=== PATIENT | female | born 1990 | race Caucasian/White ===

== ENCOUNTER 2016-04-24 23:19 | Emergency (ER) | payer MEDICAID ==
[~2016-04-24] VITALS: Ht 165.1 cm; Wt 88.1 kg
[~2016-04-24 23:19] MED LIST: ABX FOR UTI; AMLO10TA2 PO; AMLO5TAB2 PO; CALC667C PO; CALC667C3 PO; CEFD300C2 PO; CHOL10002 PO; DIPH28.34 TP; DOXY100T PO; HYDR-3240 PO; HYDR2TAB13 PO; LACT1CAP24 PO; LISI30TA PO; LORA-446 PO; OXYC-302 PO; SULF1TAB24 PO; abx; vitamin D
[2016-04-25 02:25] VITALS: BP 188/105
[2016-04-25] MEDS ORDERED: SODIUM CHLORIDE FLUSH 10ML SYR IVF ONE (02:30)
[2016-04-25 02:52] LABS: HEMOGLOBIN 11.8 g/dL (11.7-16.4)
[2016-04-25] MEDS ORDERED: CEFTAROLINE 600 MG in SODIUM CHLORIDE 0.9% 100 ML IV ONE (03:00)
[2016-04-25 03:07] LABS: BLOOD UREA NITROGEN 53 mg/dL (7-18)
[2016-04-25] MEDS ORDERED: ACETAMINOPHEN 325 MG TABLET ONE (03:57)
[2016-04-25] MEDS ORDERED: ACETAMINOPHEN 325 MG TABLET PO ONE (04:00)
[2016-04-25] MEDS ORDERED: KETOROLAC 30 MG/1 ML ONE (04:03)
[2016-04-25] MEDS ORDERED: KETOROLAC 30 MG/1 ML IVPush ONE (04:30)
== END 2016-04-25 04:31 | disposition home or self-care (01) ==
LOC: ED 04-25 04:25
DX: L03.314 Cellulitis of groin (principal); I12.0 Hypertensive chronic kidney disease with stage 5 chronic kidney disease or end stage renal disease; N18.6 End stage renal disease; M54.30 Sciatica, unspecified side; Z87.440 Personal history of urinary (tract) infections; Z99.2 Dependence on renal dialysis
CPT/HCPCS: 36415; 80048; 82040; 83605; 85025; 87040; 96365; 96375; 99284; J0712; J1885

== ENCOUNTER 2016-05-30 19:56 | Emergency (ER) | payer MEDICAID ==
[~2016-05-30] VITALS: Ht 154.9 cm; Wt 85.6 kg
[2016-05-30 21:13] LABS: HEMOGLOBIN 12.4 g/dL (11.7-16.4)
[2016-05-30 21:26] LABS: BLOOD UREA NITROGEN 37 mg/dL (7-18)
[2016-05-30 21:30] LABS: IS PT STATUS REG ER OR PRE ER? YES
[2016-05-30 22:05] LABS: PATH.CAST-FLAG NOT PRESENT; SPERM-FLAG NOT PRESENT; SRC-FLAG NOT PRESENT; XTAL-FLAG NOT PRESENT; YLC-FLAG NOT PRESENT
[2016-05-30 22:45] VITALS: BP 151/103
[2016-05-30] MEDS ORDERED: HYDROmorphone 2 MG/ML, 1ML ONE (23:10)
[2016-05-30] MEDS ORDERED: HYDROmorphone 1 MG/ML, 1ML IM ONE (23:30)
== END 2016-05-30 23:46 | disposition home or self-care (01) ==
LOC: ED 23:19
DX: R07.89 Other chest pain (principal); N30.00 Acute cystitis without hematuria; I10 Essential (primary) hypertension; M54.30 Sciatica, unspecified side; N19 Unspecified kidney failure; Z99.2 Dependence on renal dialysis
CPT/HCPCS: 36415; 71010; 80048; 81001; 82040; 84484; 85025; 87086; 87147; 93005; 96372; 99285; J1170

== ENCOUNTER 2016-11-05 11:12 | Emergency (ER) | payer MEDICARE, MEDICAID ==
[~2016-11-05] VITALS: Ht 165.1 cm; Wt 88.9 kg
[~2016-11-05 11:12] MED LIST changes: -CEFD300C2 PO; +CEFD300C37 PO; -HYDR2TAB13 PO; +HYDR2TAB29 PO
[2016-11-05] MEDS ORDERED: KETOROLAC 30 MG/1 ML ONE (12:00)
[2016-11-05] MEDS ORDERED: SODIUM CHLORIDE FLUSH 10ML SYR IVF ONE (12:00)
[2016-11-05] MEDS ORDERED: KETOROLAC 30 MG/1 ML IVPush ONE (12:00)
[2016-11-05 12:08] LABS: BLOOD UREA NITROGEN 29 mg/dL (7-18); HEMATOCRIT 38.6 % (34.6-47.8); HEMOGLOBIN 13.1 g/dL (11.7-16.4); WHITE BLOOD COUNT 4.8 x10^3/uL (3.4-10)
[2016-11-05] MEDS ORDERED: OMNIPAQUE 350 MG/ML, 100ML BOTTLE ONE (12:44)
[2016-11-05 13:32] VITALS: BP 159/81
== END 2016-11-05 13:35 | disposition home or self-care (01) ==
LOC: ED 13:29
DX: M94.0 Chondrocostal junction syndrome [Tietze] (principal); I10 Essential (primary) hypertension; Z99.2 Dependence on renal dialysis
CPT/HCPCS: 36415; 71020; 71275; 80048; 82040; 84484; 85025; 85610; 85730; 93005; 96374; 99285; J1885; Q9967

== ENCOUNTER 2016-12-29 13:18 | Emergency (ER) | payer MEDICARE, MEDICAID ==
[~2016-12-29] VITALS: Ht 162.6 cm; Wt 89.3 kg
[2016-12-29] MEDS ORDERED: HYDROmorphone 1 MG/ML, 1ML IM ONE (13:30)
[2016-12-29] MEDS ORDERED: DIAZEPAM 5 MG TABLET PO ONE (13:30)
[2016-12-29] MEDS ORDERED: ONDANSETRON ODT 4 MG PO ONE (13:30)
[2016-12-29] MEDS ORDERED: ONDANSETRON ODT 4 MG ONE (13:39)
[2016-12-29] MEDS ORDERED: DIAZEPAM 5 MG TABLET ONE (13:39)
[2016-12-29] MEDS ORDERED: HYDROmorphone 1 MG/ML, 1ML ONE (13:40)
[2016-12-29 15:06] VITALS: BP 128/84
== END 2016-12-29 15:16 | disposition home or self-care (01) ==
LOC: ED 15:10
DX: R51 Headache (principal); M54.2 Cervicalgia; I12.9 Hypertensive chronic kidney disease with stage 1 through stage 4 chronic kidney disease, or unspecified chronic kidney disease; N18.9 Chronic kidney disease, unspecified; Z99.2 Dependence on renal dialysis
CPT/HCPCS: 96372; 99283; J1170; Q0162

== ENCOUNTER 2017-01-14 17:00 | Emergency (ER) | payer MEDICAID, MEDICARE ==
[~2017-01-14] VITALS: Ht 170.2 cm; Wt 88.1 kg
[2017-01-14] MEDS ORDERED: ONDANSETRON 2MG/ML, 2ML IVPush ONE (17:30)
[2017-01-14] MEDS ORDERED: SODIUM CHLORIDE 0.9% 1,000ML IVBOLUS ONE (17:30)
[2017-01-14] MEDS ORDERED: SODIUM CHLORIDE FLUSH 10ML SYR IVF ONE (17:30)
[2017-01-14 18:00] LABS: HEMATOCRIT 37.5 % (34.6-47.8); HEMOGLOBIN 12.8 g/dL (11.7-16.4); WHITE BLOOD COUNT 7.8 x10^3/uL (3.4-10)
[2017-01-14 18:10] LABS: ASPARTATE AMINO TRANSFERASE 7 U/L (15-37); BLOOD UREA NITROGEN 33 mg/dL (7-18)
[2017-01-14] MEDS ORDERED: HYDROmorphone 1 MG/ML, 1ML IV ONE (18:30)
[2017-01-14] MEDS ORDERED: SULFAMETH./TRIMETHOPRIM DS 800MG/160MG TABLET PO ONE (21:00)
[2017-01-14 21:19] VITALS: BP 155/98
== END 2017-01-14 21:21 | disposition home or self-care (01) ==
LOC: ED 17:33
DX: L03.311 Cellulitis of abdominal wall (principal); I10 Essential (primary) hypertension; I12.0 Hypertensive chronic kidney disease with stage 5 chronic kidney disease or end stage renal disease; N18.6 End stage renal disease; Z99.2 Dependence on renal dialysis
CPT/HCPCS: 36415; 74176; 76700; 80053; 81001; 83690; 84703; 85025; 87086; 87147; 96361; 96374; 96375; 99285; J1170; J2405; J7030

== ENCOUNTER 2017-02-24 20:21 | Emergency (ER) | payer MEDICARE ==
[~2017-02-24] VITALS: Ht 162.6 cm; Wt 89.0 kg
[2017-02-24] MEDS ORDERED: CINA30TA2 PO (20:48)
[2017-02-24] MEDS ORDERED: SEVE800T8 PO (20:48)
[2017-02-24 20:50] LABS: BASOPHILS # (AUTO) 0.04 x10^3/uL (0-0.1); BASOPHILS % (AUTO) 0 % (0-1); EOSINOPHILS # (AUTO) 0.03 x10^3/uL (0-0.4); EOSINOPHILS % (AUTO) 0 % (1-7); LYMPHOCYTES # (AUTO) 2.18 x10^3/uL (1-3.4); LYMPHOCYTES % (AUTO) 22 % (22-44); MD NO; MEAN CORPUSCULAR HEMOGLOBIN 28.5 pg (27.0-34.8); MEAN CORPUSCULAR HGB CONC 33.5 g/dL (32.4-35.8); MEAN CORPUSCULAR VOLUME 85.1 fL (80-100); MONOCYTES # (AUTO) 0.75 x10^3/uL (0.2-0.8); MONOCYTES % (AUTO) 8 % (2-9); NEUTROPHILS # (AUTO) 6.97 x10^3/uL (1.8-6.8); NEUTROPHILS % (AUTO) 70 % (42-75); PLATELET COUNT 319 x10^3/uL (130-400); RED CELL DISTRIBUTION WIDTH 13.2 % (9.6-15.2)
[2017-02-24 21:01] LABS: ALBUMIN 3.9 g/dL (3.4-5.0); ANION GAP 13 mmol/L (5-15); CALCIUM 9.9 mg/dL (8.5-10.1); CHLORIDE 99 mmol/L (98-107); CREATININE 9.38 mg/dL (0.55-1.02)
[2017-02-24 21:05] LABS: TROPONIN I < 0.015 ng/mL (0.000-0.045)
[2017-02-24] MEDS ORDERED: LORazepam 2 MG/ML, 1ML ONE (21:08)
[2017-02-24] MEDS ORDERED: LORazepam 1MG TABLET PO ONE (21:30)
[2017-02-24] MEDS ORDERED: ACETAMINOPHEN 325 MG TABLET ONE (21:52)
[2017-02-24 22:18] VITALS: BP 127/89
== END 2017-02-24 22:30 | disposition home or self-care (01) ==
LOC: ED 22:15
DX: R42 Dizziness and giddiness (principal); F41.1 Generalized anxiety disorder; I12.0 Hypertensive chronic kidney disease with stage 5 chronic kidney disease or end stage renal disease; N18.6 End stage renal disease; Z99.2 Dependence on renal dialysis; I48.91 Unspecified atrial fibrillation
CPT/HCPCS: 36415; 71045; 80048; 82040; 84484; 84703; 85025; 93005; 99285

== ENCOUNTER 2017-03-07 13:32 | Emergency (ER) | payer MEDICARE ==
[~2017-03-07] VITALS: Ht 162.6 cm; Wt 90.5 kg
[~2017-03-07 13:32] MED LIST changes: +CINA30TA2 PO; +SEVE800T8 PO
[2017-03-07] MEDS ORDERED: PARO10TA73 PO (14:10)
[2017-03-07] MEDS ORDERED: ACET325T14 PO (14:11)
[2017-03-07] MEDS ORDERED: LORazepam 1MG TABLET ONE (14:16)
[2017-03-07 14:27] LABS: BASOPHILS # (AUTO) 0.02 x10^3/uL (0-0.1); BASOPHILS % (AUTO) 0 % (0-1); EOSINOPHILS # (AUTO) 0.07 x10^3/uL (0-0.4); EOSINOPHILS % (AUTO) 1 % (1-7); LYMPHOCYTES # (AUTO) 1.47 x10^3/uL (1-3.4); LYMPHOCYTES % (AUTO) 25 % (22-44); MD NO; MEAN CORPUSCULAR HEMOGLOBIN 28.7 pg (27.0-34.8); MEAN CORPUSCULAR HGB CONC 33.7 g/dL (32.4-35.8); MEAN CORPUSCULAR VOLUME 85.2 fL (80-100); MEAN PLATELET VOLUME 7.9 fL (7.4-10.4); MONOCYTES # (AUTO) 0.46 x10^3/uL (0.2-0.8); MONOCYTES % (AUTO) 8 % (2-9); NEUTROPHILS # (AUTO) 3.79 x10^3/uL (1.8-6.8); NEUTROPHILS % (AUTO) 65 % (42-75); PLATELET COUNT 293 x10^3/uL (130-400); RED BLOOD COUNT 3.87 x10^6/uL (3.82-5.3); RED CELL DISTRIBUTION WIDTH 13.1 % (9.6-15.2)
[2017-03-07] MEDS ORDERED: LORazepam 1MG TABLET PO ONE (14:30)
[2017-03-07 14:37] LABS: ALBUMIN 3.4 g/dL (3.4-5.0); ANION GAP 11 mmol/L (5-15); CHLORIDE 105 mmol/L (98-107)
[2017-03-07 15:44] VITALS: BP 148/73
== END 2017-03-07 15:56 | disposition home or self-care (01) ==
LOC: ED 13:50
DX: F41.1 Generalized anxiety disorder (principal); I12.0 Hypertensive chronic kidney disease with stage 5 chronic kidney disease or end stage renal disease; N18.6 End stage renal disease; Z99.2 Dependence on renal dialysis
CPT/HCPCS: 36415; 76857; 80048; 82040; 84702; 85025; 93005; 99285

== ENCOUNTER 2017-03-15 23:14 | Emergency (ER) | payer MEDICARE ==
[~2017-03-15] VITALS: Ht 162.6 cm; Wt 92.2 kg
[~2017-03-15 23:14] MED LIST changes: +ACET325T14 PO; +PARO10TA73 PO
[2017-03-15 23:23] VITALS: BP 173/122
[2017-03-15] MEDS ORDERED: LORazepam 1MG TABLET ONE (23:55)
[2017-03-16] MEDS ORDERED: LORazepam 1MG TABLET PO ONE
[2017-03-16 00:10] LABS: BASOPHILS # (AUTO) 0.03 x10^3/uL (0-0.1); BASOPHILS % (AUTO) 0 % (0-1); EOSINOPHILS # (AUTO) 0.13 x10^3/uL (0-0.4); EOSINOPHILS % (AUTO) 1 % (1-7); LYMPHOCYTES # (AUTO) 2.17 x10^3/uL (1-3.4); LYMPHOCYTES % (AUTO) 25 % (22-44); MD NO; MEAN CORPUSCULAR HEMOGLOBIN 28.5 pg (27.0-34.8); MEAN CORPUSCULAR HGB CONC 33.4 g/dL (32.4-35.8); MEAN CORPUSCULAR VOLUME 85.3 fL (80-100); MEAN PLATELET VOLUME 7.9 fL (7.4-10.4); MONOCYTES # (AUTO) 0.51 x10^3/uL (0.2-0.8); MONOCYTES % (AUTO) 6 % (2-9); NEUTROPHILS # (AUTO) 5.88 x10^3/uL (1.8-6.8); NEUTROPHILS % (AUTO) 68 % (42-75); PLATELET COUNT 317 x10^3/uL (130-400); RED BLOOD COUNT 3.82 x10^6/uL (3.82-5.3); RED CELL DISTRIBUTION WIDTH 12.7 % (9.6-15.2)
[2017-03-16 00:15] LABS: MICROSCOPIC AUTO
[2017-03-16 00:17] LABS: CULTURE INDICATED? YES
[2017-03-16 00:23] LABS: ALANINE AMINOTRANSFERASE 17 U/L (12-78); ALBUMIN 3.6 g/dL (3.4-5.0); ANION GAP 12 mmol/L (5-15); CALCIUM 9.4 mg/dL (8.5-10.1); CHLORIDE 103 mmol/L (98-107)
[2017-03-16 00:27] LABS: ALKALINE PHOSPHATASE 222 U/L (45-117); BILIRUBIN,TOTAL 0.3 mg/dL (0.2-1.0); TOTAL PROTEIN 8.3 g/dL (6.4-8.2)
== END 2017-03-16 01:48 | disposition home or self-care (01) ==
LOC: ED 23:53
DX: R55 Syncope and collapse (principal); N30.00 Acute cystitis without hematuria; F41.1 Generalized anxiety disorder; I10 Essential (primary) hypertension; Z88.5 Allergy status to narcotic agent; Z99.2 Dependence on renal dialysis
CPT/HCPCS: 36415; 80053; 81001; 82330; 84703; 85025; 87086; 93005; 99285

== ENCOUNTER 2019-01-11 04:40 | Emergency (ER) | payer MEDICARE, OTHER ==
[~2019-01-11] VITALS: Ht 154.9 cm; Wt 78.1 kg
[~2019-01-11 04:40] MED LIST changes: +AMLO-150 PO; -AMLO10TA2 PO; +AMLO10TA8 PO; -AMLO5TAB2 PO
[2019-01-11] MEDS ORDERED: METOCLOPRAMIDE 5 MG/ML, 2ML ONE (05:10)
[2019-01-11] MEDS ORDERED: METOCLOPRAMIDE 5 MG/ML, 2ML IM ONE (05:30)
[2019-01-11 05:42] LABS: BASOPHILS # (AUTO) 0.03 x10^3/uL (0-0.1); BASOPHILS % (AUTO) 1 % (0-1); EOSINOPHILS # (AUTO) 0.15 x10^3/uL (0-0.4); EOSINOPHILS % (AUTO) 3 % (1-7); LYMPHOCYTES # (AUTO) 0.97 x10^3/uL (1-3.4); LYMPHOCYTES % (AUTO) 18 % (22-44); MD NO; MEAN CORPUSCULAR HEMOGLOBIN 30.9 pg (27.0-34.8); MEAN CORPUSCULAR HGB CONC 33.3 g/dL (32.4-35.8); MEAN CORPUSCULAR VOLUME 92.8 fL (80-100); MONOCYTES # (AUTO) 0.44 x10^3/uL (0.2-0.8); MONOCYTES % (AUTO) 8 % (2-9); NEUTROPHILS # (AUTO) 3.87 x10^3/uL (1.8-6.8); NEUTROPHILS % (AUTO) 71 % (42-75); PLATELET COUNT 298 x10^3/uL (130-400); RED BLOOD COUNT 4.05 x10^6/uL (3.82-5.3); RED CELL DISTRIBUTION WIDTH 16.2 % (9.6-15.2)
[2019-01-11 05:46] LABS: ALBUMIN 3.4 g/dL (3.4-5.0); ANION GAP 15 mmol/L (5-15); CALCIUM 9.8 mg/dL (8.5-10.1); CHLORIDE 102 mmol/L (98-107)
[2019-01-11 06:02] VITALS: BP 142/93
[2019-01-11] MEDS ORDERED: ACETAMINOPHEN 500 MG TABLET PO ONE (06:30)
[2019-01-11] MEDS ORDERED: ACETAMINOPHEN 500 MG TABLET ONE (06:30)
== END 2019-01-11 06:36 | disposition home or self-care (01) ==
LOC: ED 06:28
DX: R51 Headache (principal); I12.9 Hypertensive chronic kidney disease with stage 1 through stage 4 chronic kidney disease, or unspecified chronic kidney disease; N18.4 Chronic kidney disease, stage 4 (severe)
CPT/HCPCS: 36415; 80048; 82040; 85025; 93005; 96372; 99284; J2765

== ENCOUNTER 2020-03-13 02:02 | Emergency (ER) | payer MEDICARE, MEDICAID ==
[~2020-03-13] VITALS: Ht 162.6 cm; Wt 79.0 kg
[~2020-03-13 02:02] MED LIST changes: +AMLO-211 PO; -AMLO10TA8 PO; +HYDR-1067 PO; -HYDR-3240 PO; -OXYC-302 PO; +OXYC1TAB14 PO
[2020-03-13] MEDS ORDERED: HYDROmorphone 1 MG/ML, 1ML INJ IM ONE (02:30)
[2020-03-13] MEDS ORDERED: HYDROmorphone 1 MG/ML, 1ML INJ ONE (03:11)
[2020-03-13 03:21] LABS: BASOPHILS % (AUTO) 1 % (0-1); EOSINOPHILS % (AUTO) 3 % (1-7); LYMPHOCYTES % (AUTO) 33 % (22-44); MEAN CORPUSCULAR HGB CONC 33.7 g/dL (32.4-35.8); MEAN PLATELET VOLUME 7.8 fL (7.4-10.4); MONOCYTES % (AUTO) 13 % (2-9); NEUTROPHILS % (AUTO) 51 % (42-75); PLATELET COUNT 223 x10^3/uL (130-400); RED BLOOD COUNT 3.03 x10^6/uL (3.82-5.3); RED CELL DISTRIBUTION WIDTH 15.7 % (9.6-15.2)
[2020-03-13 03:26] LABS: MD NO
--- NOTE | 2020-03-13 03:29 | NUR ---
Pt settled into bed, on monitor, states cp that radiates into back, has nausea. IV placed. Pt medicated with relief stated. Will monitor. Call light in reach. Family at bedside.
[2020-03-13 03:31] LABS: ALBUMIN 3.2 g/dL (3.4-5.0); ANION GAP 13 mmol/L (5-15); CALCIUM 8.9 mg/dL (8.5-10.1); CHLORIDE 96 mmol/L (98-107)
[2020-03-13 03:36] LABS: ALANINE AMINOTRANSFERASE 16 U/L (12-78); ALKALINE PHOSPHATASE 814 U/L (45-117); BILIRUBIN,TOTAL 0.4 mg/dL (0.2-1.0); TOTAL PROTEIN 7.5 g/dL (6.4-8.2); TROPONIN I < 0.015 ng/mL (0.000-0.045)
[2020-03-13 04:21] VITALS: BP 148/74
--- NOTE | 2020-03-13 04:22 | NUR ---
Pt states feeling much better. Pt dc'd with written and verbal instrcutions. Pt instructed not to drive and has a ride home. IV dc'd intact. pt ambulatory out of ED without difficulty.
== END 2020-03-13 04:24 | disposition home or self-care (01) ==
LOC: ED 04:00
DX: R07.2 Precordial pain (principal); I12.9 Hypertensive chronic kidney disease with stage 1 through stage 4 chronic kidney disease, or unspecified chronic kidney disease; N18.9 Chronic kidney disease, unspecified; R07.89 Other chest pain; R06.02 Shortness of breath; I10 Essential (primary) hypertension; R11.0 Nausea
CPT/HCPCS: 36415; 71045; 80053; 84484; 85025; 93005; 96372; 99285; J1170

== ENCOUNTER 2020-03-22 23:56 | Emergency (ER) | payer MEDICARE, MEDICAID ==
[~2020-03-22] VITALS: Ht 162.6 cm; Wt 77.8 kg
[2020-03-23] MEDS ORDERED: ONDANSETRON 2MG/ML, 2ML IVPush ONE (00:30)
[2020-03-23] MEDS ORDERED: HYDROmorphone 1 MG/ML, 1ML INJ ONE ×2 (00:34→02:30)
[2020-03-23] MEDS ORDERED: ONDANSETRON 2MG/ML, 2ML ONE (00:34)
[2020-03-23] MEDS: HYDROmorphone 2 MG/ML, 1ML IVPush PRN ×2 (00:36→02:35)
--- NOTE | 2020-03-23 00:43 | NUR ---
CC OF ABD PAIN 8/10 IN RIGHT AND LEFT LOWER QUADS X 2 DAYS, WORSE ON RIGHT LOWER QUAD. PT HAS NAUSEA. BOYFRIEND AT BEDSIDE.
[2020-03-23 00:47] LABS: BASOPHILS % (AUTO) 1 % (0-1); EOSINOPHILS % (AUTO) 2 % (1-7); LYMPHOCYTES % (AUTO) 37 % (22-44); MEAN CORPUSCULAR HGB CONC 33.4 g/dL (32.4-35.8); MEAN PLATELET VOLUME 7.3 fL (7.4-10.4); MONOCYTES % (AUTO) 10 % (2-9); NEUTROPHILS % (AUTO) 51 % (42-75); PLATELET COUNT 303 x10^3/uL (130-400); RED BLOOD COUNT 3.34 x10^6/uL (3.82-5.3); RED CELL DISTRIBUTION WIDTH 15.3 % (9.6-15.2)
[2020-03-23 00:51] LABS: ALANINE AMINOTRANSFERASE 20 U/L (12-78); ALBUMIN 3.4 g/dL (3.4-5.0); ANION GAP 10 mmol/L (5-15); CALCIUM 8.3 mg/dL (8.5-10.1); CHLORIDE 98 mmol/L (98-107); CREATININE 6.67 mg/dL (0.55-1.02)
[2020-03-23 00:52] LABS: MD NO
[2020-03-23 00:56] LABS: ALKALINE PHOSPHATASE 863 U/L (45-117); BILIRUBIN,TOTAL 0.3 mg/dL (0.2-1.0); TOTAL PROTEIN 8.2 g/dL (6.4-8.2)
--- NOTE | 2020-03-23 01:30 | NUR ---
PT UNABLE TO VOID, STATES SHE VOIDS 1-2 TIMES A DAY AND IS UNABLE TO GO NOW. ERP MADE AWARE.
[2020-03-23 02:38] VITALS: BP 138/92
== END 2020-03-23 02:56 | disposition home or self-care (01) ==
LOC: ED 03-23 01:20
DX: R10.31 Right lower quadrant pain (principal); R10.2 Pelvic and perineal pain; N93.9 Abnormal uterine and vaginal bleeding, unspecified; I10 Essential (primary) hypertension; R11.0 Nausea
CPT/HCPCS: 36415; 76830; 80053; 83690; 84703; 85025; 96374; 96375; 96376; 99284; J1170; J2405

== ENCOUNTER 2020-03-25 12:15 | Emergency (ER) | payer MEDICARE, MEDICAID ==
[~2020-03-25] VITALS: Ht 162.6 cm; Wt 76.0 kg
[2020-03-25] MEDS ORDERED: ASPIRIN 81 MG TABLET CHEW PO ONE (13:00)
--- NOTE | 2020-03-25 13:22 | NUR ---
PT CAME IN CO CP AND RIGHT LOWER ABD PAIN. WITH NAUSEA AND VOMITING. HAD DIALYSIS TODAY (COMPELTED SESSION) M/W/F VOIDS ONCE A DAY IN THE AM- ERP MADE AWARE-TO AVOID STRAIGHT CATH
[2020-03-25 13:30] LABS: BASOPHILS % (AUTO) 1 % (0-1); EOSINOPHILS % (AUTO) 1 % (1-7); LYMPHOCYTES % (AUTO) 19 % (22-44); MEAN CORPUSCULAR HEMOGLOBIN 27.9 pg (27.0-34.8); MEAN CORPUSCULAR HGB CONC 33.6 g/dL (32.4-35.8); MEAN PLATELET VOLUME 7.2 fL (7.4-10.4); MONOCYTES % (AUTO) 8 % (2-9); NEUTROPHILS % (AUTO) 71 % (42-75); PLATELET COUNT 337 x10^3/uL (130-400); RED CELL DISTRIBUTION WIDTH 15.8 % (9.6-15.2)
[2020-03-25] MEDS ORDERED: SODIUM CHLORIDE FLUSH 10ML SYR IVF ONE (13:30)
[2020-03-25 13:31] LABS: MD NO
[2020-03-25 13:37] LABS: ALANINE AMINOTRANSFERASE 18 U/L (12-78); ALBUMIN 3.7 g/dL (3.4-5.0); ANION GAP 10 mmol/L (5-15); CALCIUM 7.9 mg/dL (8.5-10.1); CHLORIDE 98 mmol/L (98-107)
[2020-03-25 13:51] LABS: ALKALINE PHOSPHATASE 933 U/L (45-117); BILIRUBIN,TOTAL 0.5 mg/dL (0.2-1.0); CREATININE 6.33 mg/dL (0.55-1.02); TOTAL PROTEIN 8.6 g/dL (6.4-8.2)
--- NOTE | 2020-03-25 13:56 | NUR ---
piv placed for medication/ct scan
[2020-03-25] MEDS ORDERED: HYDROmorphone 1 MG/ML, 1ML INJ ONE (13:58)
[2020-03-25] MEDS: HYDROmorphone 2 MG/ML, 1ML IVPush PRN ×2 (14:11→16:40)
--- NOTE | 2020-03-25 14:20 | NUR ---
PAIN IMPROVED TO 0/[address] SCAN
--- NOTE | 2020-03-25 14:59 | NUR ---
REPORT TO MEDARDO KATHLEEN
--- NOTE | 2020-03-25 14:59 | NUR ---
TESTING ATCSDUGH-[id number]-NZEYCF UP FOR RECHECK
--- NOTE | 2020-03-25 15:49 | NUR ---
BP elevated, informing MD. Pt resting, reporting she still has some right abdominal pain. Dilaudid given at 1411.
[2020-03-25] MEDS ORDERED: HYDROmorphone 2 MG/ML, 1ML ONE (16:38)
[2020-03-25 16:42] VITALS: BP 175/113
--- NOTE | 2020-03-25 16:44 | NUR ---
TASK RN: PT MEDICATED FOR PAIN. PT TO BE OBSERVED THEN DC
--- NOTE | 2020-03-25 17:00 | NUR ---
Patient/Caregiver given discharge instructions and they have confirmed that they understand the instructions. Patient ambulatory with steady gait.
== END 2020-03-25 17:02 | disposition home or self-care (01) ==
LOC: ED 14:40
DX: N83.00 Follicular cyst of ovary, unspecified side (principal); M46.1 Sacroiliitis, not elsewhere classified; I12.0 Hypertensive chronic kidney disease with stage 5 chronic kidney disease or end stage renal disease; N18.6 End stage renal disease; R94.31 Abnormal electrocardiogram [ECG] [EKG]; Z99.2 Dependence on renal dialysis
CPT/HCPCS: 36415; 74176; 80053; 83735; 84703; 85025; 93005; 96374; 96376; 99285; J1170

== ENCOUNTER 2020-04-15 10:04 | Emergency (ER) | payer MEDICAID, MEDICARE ==
[~2020-04-15] VITALS: Ht 162.6 cm; Wt 76.2 kg
[2020-04-15] MEDS ORDERED: HYDROmorphone 1 MG/ML, 1ML INJ IV STA (10:22)
[2020-04-15] MEDS ORDERED: ONDANSETRON 2MG/ML, 2ML IVPush ONE (10:30)
[2020-04-15] MEDS ORDERED: SODIUM CHLORIDE FLUSH 10ML SYR IVF ONE (10:30)
[2020-04-15 10:45] LABS: BASOPHILS % (AUTO) 1 % (0-1); EOSINOPHILS % (AUTO) 1 % (1-7); LYMPHOCYTES % (AUTO) 10 % (22-44); MEAN CORPUSCULAR HEMOGLOBIN 27.5 pg (27.0-34.8); MEAN CORPUSCULAR HGB CONC 33.2 g/dL (32.4-35.8); MEAN PLATELET VOLUME 7.2 fL (7.4-10.4); MONOCYTES % (AUTO) 6 % (2-9); NEUTROPHILS % (AUTO) 83 % (42-75); PLATELET COUNT 291 x10^3/uL (130-400); RED BLOOD COUNT 3.76 x10^6/uL (3.82-5.3); RED CELL DISTRIBUTION WIDTH 16.4 % (9.6-15.2)
[2020-04-15 10:46] LABS: MD NO
[2020-04-15 10:55] LABS: ALANINE AMINOTRANSFERASE 9 U/L (12-78); ALBUMIN 4.1 g/dL (3.4-5.0); ANION GAP 10 mmol/L (5-15); CALCIUM 9.7 mg/dL (8.5-10.1); CHLORIDE 96 mmol/L (98-107); CREATININE 5.73 mg/dL (0.55-1.02)
--- NOTE | 2020-04-15 11:08 | NUR ---
ASSUMED CARE OF PT FROM LOBBY AT THIS TIME. ERP HAS EVALUATED PT. US AT BEDSIDE. 29 YO FEMALE PRESENTS STATING "MY RIGHT ARM HURTS AFTER MY DIALYSIS THIS MORNING" PT RATES PAIN 10/10 IN R ARM. SWELLING NOTED TO R HAND BUT NO DEFORMITIES NOTED. CMS INTACT RADIAL PULSE PALPABLE.
[2020-04-15 11:09] LABS: ALKALINE PHOSPHATASE 1125 U/L (45-117); BILIRUBIN,TOTAL 0.5 mg/dL (0.2-1.0); TOTAL PROTEIN 9.3 g/dL (6.4-8.2)
--- NOTE | 2020-04-15 11:10 | NUR ---
PT PLACED ON CONTINIOUS BP AND O2 MOINTORS. BP ELEVATED, HX OF HTN AND PT REPORTS NOT TAKING BP MEDS THIS AM. ERP AWARE, NO NEW ORDERS RECEIVED. TO PLACE IV AND MEDICATE FOR PAIN AND NAUSEA. CALL LIGHT IN REACH AND FALL PRECAUSIONS IN PLACE
[2020-04-15] MEDS ORDERED: HYDROmorphone 1 MG/ML, 1ML INJ ONE ×2 (11:12→12:15)
[2020-04-15] MEDS ORDERED: ONDANSETRON 2MG/ML, 2ML ONE (11:12)
--- NOTE | 2020-04-15 11:50 | NUR ---
PABLO AQUINO AT BEDSIDE TO RECHECK PT. AWARE RN'S UNABLE TO OBTAIN IV ACCESS. PER PABLO AQUINO, NO IV TO BE PLACED AT THIS TIME, PROVIDER TO ORDER PO MEDICATIONS AND DISCHARGE PT. PT VERBALIZED UNDERSTANDING OF POC. BP REMAINS ELEVATED, PABLO AQUINO AWARE, NO NEW ORDERS RECEIVED FOR BP.
[2020-04-15] MEDS ORDERED: ONDANSETRON ODT 4 MG ONE (11:55)
[2020-04-15] MEDS ORDERED: HYDROcodone/APAP 5/325 TABLET ONE (11:55)
[2020-04-15] MEDS ORDERED: HYDROcodone/APAP 5/325 TABLET PO ONE (12:00)
[2020-04-15] MEDS ORDERED: ONDANSETRON ODT 4 MG PO ONE (12:00)
--- NOTE | 2020-04-15 12:00 | NUR ---
REPORT AND CARE TO BREAK FRANNIE MELARA AT THIS TIME.
--- NOTE | 2020-04-15 12:00 | NUR ---
PT STATES SHE IS ALLERGIC TO NORCO AND HER LIPS SWELL WHEN SHE TAKES IT. PROVIDER MADE AWARE AND ORDER RECEIVED FOR DILAUDID 0.5 MG IM
--- NOTE | 2020-04-15 12:20 | NUR ---
MEDICATED FOR PAIN NOTED ON MAR WITH DILAUDID 0.5 MG IM
--- NOTE | 2020-04-15 12:20 | NUR ---
REPORT AND CARE BACK FROM SARITHA KATHLEEN. PT AWAITING D/C PAPERS FROM ERP. RESTING COMFORTABLY. VSS, UNCHANGED. CALL LIGHT IN REACH
[2020-04-15] MEDS ORDERED: HYDROmorphone 1 MG/ML, 1ML INJ IM ONE (12:30)
[2020-04-15 12:38] VITALS: BP 155/134
== END 2020-04-15 12:52 | disposition home or self-care (01) ==
LOC: ED 10:37
DX: M79.621 Pain in right upper arm (principal); I10 Essential (primary) hypertension; Z88.6 Allergy status to analgesic agent; Z88.5 Allergy status to narcotic agent
CPT/HCPCS: 36415; 80053; 85025; 93971; 96372; 99284; J1170; Q0162

== ENCOUNTER 2020-07-14 18:29 | Emergency (ER) | payer MEDICARE ==
[~2020-07-14] VITALS: Ht 162.6 cm; Wt 76.2 kg
[~2020-07-14 18:29] MED LIST changes: -HYDR-1067 PO; +HYDR-2214 PO; +SULF-23 PO; -SULF1TAB24 PO
--- NOTE | 2020-07-14 18:43 | NUR ---
PT TO RM AT THIS TIME WITH STEADY GAIT, MOTHER AT BEDSIDE, PT CHANGING TO GOWN
--- NOTE | 2020-07-14 19:12 | NUR ---
Pt came in with c/o CP and R side ab pain that occured around 3pm this afternoon. Pt states that she had dialysis on wednesday and typically gets CP a day or two post tx. Pt currently sitting in bed with family at bedside, attached to all monitors, A&O x4, VSS, NADN.
[2020-07-14] MEDS ORDERED: SODIUM CHLORIDE FLUSH 10ML SYR IVF ONE (20:00)
[2020-07-14] MEDS ORDERED: HYDROmorphone 1 MG/ML, 1ML INJ IV ONE (20:00)
[2020-07-14] MEDS ORDERED: ONDANSETRON 2MG/ML, 2ML IVPush ONE (20:00)
[2020-07-14] MEDS ORDERED: HYDROmorphone 1 MG/ML, 1ML INJ ONE (20:11)
[2020-07-14] MEDS ORDERED: ONDANSETRON 2MG/ML, 2ML ONE (20:12)
[2020-07-14 20:39] LABS: ALANINE AMINOTRANSFERASE 19 U/L (12-78); ALBUMIN 3.4 g/dL (3.4-5.0); ANION GAP 15 mmol/L (5-15); CALCIUM 8.9 mg/dL (8.5-10.1); CHLORIDE 95 mmol/L (98-107)
[2020-07-14 20:44] LABS: ALKALINE PHOSPHATASE 836 U/L (45-117); BILIRUBIN,TOTAL 0.4 mg/dL (0.2-1.0); TOTAL PROTEIN 8.2 g/dL (6.4-8.2); TROPONIN I < 0.015 ng/mL (0.000-0.045)
[2020-07-14 21:21] LABS: BASOPHILS % (AUTO) 1 % (0-1); EOSINOPHILS % (AUTO) 1 % (1-7); LYMPHOCYTES % (AUTO) 28 % (22-44); MEAN CORPUSCULAR HEMOGLOBIN 27.1 pg (27.0-34.8); MONOCYTES % (AUTO) 9 % (2-9); NEUTROPHILS % (AUTO) 61 % (42-75); PLATELET COUNT 239 x10^3/uL (130-400); RED BLOOD COUNT 3.52 x10^6/uL (3.82-5.3); RED CELL DISTRIBUTION WIDTH 16.8 % (9.6-15.2)
[2020-07-14 21:24] LABS: MD NO
--- NOTE | 2020-07-14 21:36 | NUR ---
Pt ambulatory with steady gait to restroom
[2020-07-14 22:08] VITALS: BP 152/96
== END 2020-07-14 22:22 ==
LOC: ED 20:16
DX: O26.891 Other specified pregnancy related conditions, first trimester (principal); Z32.01 Encounter for pregnancy test, result positive; I12.0 Hypertensive chronic kidney disease with stage 5 chronic kidney disease or end stage renal disease; N18.6 End stage renal disease; D53.9 Nutritional anemia, unspecified; R10.11 Right upper quadrant pain; R10.13 Epigastric pain; Z99.2 Dependence on renal dialysis; Z3A.01 Less than 8 weeks gestation of pregnancy
CPT/HCPCS: 36415; 76700; 80053; 83690; 83880; 84484; 84702; 85025; 93005; 96374; 96375; 99285; J1170; J2405; 84703

== ENCOUNTER 2020-07-22 11:32 | Emergency (ER) | payer MEDICARE, MEDICAID ==
[~2020-07-22] VITALS: Ht 162.6 cm; Wt 73.7 kg
--- NOTE | 2020-07-22 12:29 | NUR ---
PT AMBULATORY TO ROOM FROM TRIAGE, PT CHANGED INTO GOWN. MONITORS IN PLACE. CALL LIGHT WITHIN REACH. PT STATES SHE WAS HERE LAST WEEK, NOTIFIED SHE IS . PT C/O N/V WITH ABD PAIN TODAY
--- NOTE | 2020-07-22 12:53 | NUR ---
PT UNABLE TO PROVIDE URINE SAMPLE AT THIS TIME
--- NOTE | 2020-07-22 13:08 | NUR ---
PT TO US
[2020-07-22 13:13] LABS: BASOPHILS % (AUTO) 1 % (0-1); EOSINOPHILS % (AUTO) 1 % (1-7); LYMPHOCYTES % (AUTO) 20 % (22-44); MEAN CORPUSCULAR HEMOGLOBIN 26.9 pg (27.0-34.8); MEAN PLATELET VOLUME 7.3 fL (7.4-10.4); MONOCYTES % (AUTO) 9 % (2-9); NEUTROPHILS % (AUTO) 70 % (42-75); PLATELET COUNT 279 x10^3/uL (130-400); RED CELL DISTRIBUTION WIDTH 16.9 % (9.6-15.2)
[2020-07-22 13:24] LABS: ALANINE AMINOTRANSFERASE 17 U/L (12-78); ALBUMIN 3.3 g/dL (3.4-5.0); ANION GAP 10 mmol/L (5-15); CALCIUM 9.7 mg/dL (8.5-10.1); CHLORIDE 94 mmol/L (98-107); CREATININE 6.31 mg/dL (0.55-1.02)
[2020-07-22 13:28] LABS: ALKALINE PHOSPHATASE 789 U/L (45-117); BILIRUBIN,TOTAL 0.7 mg/dL (0.2-1.0)
--- NOTE | 2020-07-22 14:15 | NUR ---
PT STATES SHE IS STILL UNABLE TO PROVIDE URINE SAMPLE AT THIS TIME
[2020-07-22 14:17] VITALS: BP 107/77
--- NOTE | 2020-07-22 14:20 | NUR ---
PT SITTING ON FAMILY VITALIY AT BS. NADN/VSS. CALL LIGHT WITHIN REACH. NO NEEDS AT THIS TIME
--- NOTE | 2020-07-22 15:09 | NUR ---
Patient given discharge instructions and they have confirmed that they understand the instructions. Patient ambulatory with steady gait.
== END 2020-07-22 15:10 | disposition home or self-care (01) ==
LOC: ED 15:04
DX: O03.9 Complete or unspecified spontaneous abortion without complication (principal); R10.30 Lower abdominal pain, unspecified; O16.1 Unspecified maternal hypertension, first trimester; Z3A.01 Less than 8 weeks gestation of pregnancy; Z99.2 Dependence on renal dialysis
CPT/HCPCS: 36415; 76801; 80053; 84702; 85025; 86850; 86870; 86900; 93005; 99285

== ENCOUNTER 2020-08-07 21:35 | Emergency (ER) | payer MEDICARE, MEDICAID ==
[~2020-08-07] VITALS: Ht 162.6 cm; Wt 74.0 kg
--- NOTE | 2020-08-07 22:42 | NUR ---
pt presents to ed with right lower quad abd pain and chest pain. pt stated pain started while at dialysis to day and that she took tylenol with no relief. pt in gown, resting on gurney and placed on continuous monitoring.
[2020-08-07] MEDS ORDERED: SODIUM CHLORIDE 0.9% 1,000 ML IV ONE (23:00)
[2020-08-07] MEDS ORDERED: HYDROmorphone 1 MG/ML, 1ML INJ IV ONE (23:00)
[2020-08-07] MEDS ORDERED: SODIUM CHLORIDE FLUSH 10ML SYR IVF ONE (23:00)
[2020-08-07] MEDS ORDERED: ONDANSETRON 2MG/ML, 2ML IVPush ONE (23:00)
[2020-08-07 23:35] LABS: BASOPHILS % (AUTO) 1 % (0-1); EOSINOPHILS % (AUTO) 1 % (1-7); LYMPHOCYTES % (AUTO) 32 % (22-44); MEAN CORPUSCULAR HEMOGLOBIN 26.8 pg (27.0-34.8); MEAN CORPUSCULAR HGB CONC 33.2 g/dL (32.4-35.8); MEAN PLATELET VOLUME 7.2 fL (7.4-10.4); MONOCYTES % (AUTO) 9 % (2-9); NEUTROPHILS % (AUTO) 58 % (42-75); PLATELET COUNT 233 x10^3/uL (130-400); RED BLOOD COUNT 3.74 x10^6/uL (3.82-5.3); RED CELL DISTRIBUTION WIDTH 17.4 % (9.6-15.2)
[2020-08-07] MEDS ORDERED: ONDANSETRON 2MG/ML, 2ML ONE (23:36)
[2020-08-07] MEDS ORDERED: HYDROmorphone 1 MG/ML, 1ML INJ ONE (23:36)
--- NOTE | 2020-08-07 23:45 | NUR ---
FIRST ATTEMPT ON IV UNSUCCESSFUL. THIS RN ASKED FRANNIE GREEN TO START IV WITH ULTRASOUND.
--- NOTE | 2020-08-07 23:45 | NUR ---
pt has fistula on right forearm, bruit and thrill present. no iv's or bp's on that arm
[2020-08-07 23:48] LABS: ALANINE AMINOTRANSFERASE 12 U/L (12-78); ANION GAP 11 mmol/L (5-15); CALCIUM 9.7 mg/dL (8.5-10.1); CHLORIDE 97 mmol/L (98-107); CREATININE 6.19 mg/dL (0.55-1.02)
[2020-08-07 23:51] LABS: ALKALINE PHOSPHATASE 761 U/L (45-117); BILIRUBIN,TOTAL 0.4 mg/dL (0.2-1.0); TOTAL PROTEIN 7.7 g/dL (6.4-8.2)
--- NOTE | 2020-08-08 00:10 | NUR ---
20 G IV STARTED IN LEFT HAND BY ULTRASOUND. PT ABLE TO PROVIDE UA SAMPLE, UA SENT TO LAB, PT MEDICATED AND RESTING COMFORTABLY ON GURNEY.
--- NOTE | 2020-08-08 00:22 | NUR ---
PT TO CT
[2020-08-08] MEDS ORDERED: OMNIPAQUE 350 MG/ML, 100ML BOTTLE ONE (00:31)
--- NOTE | 2020-08-08 00:43 | NUR ---
PT BACK FROM CT, RESTING ON GURDAMON, DENIES NEEDS AT THIS TIME.
--- NOTE | 2020-08-08 00:43 | NUR ---
IVF STARTED PER ERP
[2020-08-08 00:59] LABS: MICROSCOPIC INDICATED
--- NOTE | 2020-08-08 01:15 | NUR ---
Luis Eduardo khalil in [facility] - 08/08/20 at 0210 by BENNIE PT RESTING COMFORTABLY ON VITALIYSHELLIE AT THIS TIME.
--- NOTE | 2020-08-08 01:15 | NUR ---
PT RESTING COMFORTABLY ON GURNEY, DENIES NEEDS AT THIS TIME.
--- NOTE | 2020-08-08 02:03 | NUR ---
US AT BEDSIDE
--- NOTE | 2020-08-08 02:26 | NUR ---
US COMPLETE, PT RESTING ON GURDAMON, DENIES NEEDS AT THIS TIME.
[2020-08-08] MEDS ORDERED: HYDROmorphone 1 MG/ML, 1ML INJ ONE (03:08)
--- NOTE | 2020-08-08 03:20 | NUR ---
pt requesting more pain medication. pt given medications. resting comfortably on gurney, denies needs at this time.
[2020-08-08] MEDS ORDERED: HYDROmorphone 1 MG/ML, 1ML INJ IV ONE (03:30)
[2020-08-08 04:00] VITALS: BP 129/99
--- NOTE | 2020-08-08 04:37 | NUR ---
Patient given discharge instructions and they have confirmed that they understand the instructions. Patient ambulatory with steady gait.
== END 2020-08-08 04:44 | disposition home or self-care (01) ==
LOC: ED 08-08 00:20
DX: R10.31 Right lower quadrant pain (principal); R11.0 Nausea; R94.31 Abnormal electrocardiogram [ECG] [EKG]; I10 Essential (primary) hypertension
CPT/HCPCS: 36415; 74177; 76830; 80053; 81001; 83690; 84702; 85025; 87086; 93005; 96361; 96374; 96375; 96376; 99285; J1170; J2405; J7030; Q9967

== ENCOUNTER 2020-08-10 17:09 | Emergency (ER) | payer MEDICARE, MEDICAID ==
[~2020-08-10] VITALS: Ht 154.9 cm; Wt 76.2 kg
--- NOTE | 2020-08-10 17:40 | NUR ---
INITAL CONTACT WITH PT: PT C/O CHEST PAIN, SOB, NAUSEA/VOMITING FOR ONE HOUR. DLAYSIS PATIENT MWF, LAST DIALYSIS WAS YESTERDAY. PT ATTACHED TO MONITORS. VSS. NADN. AWAITNG ORDERS
--- NOTE | 2020-08-10 17:56 | NUR ---
DR. YUAN TO BEDSIDE FOR EVALUTION. VSS. ARCOS.
[2020-08-10] MEDS ORDERED: ONDANSETRON ODT 4 MG ONE (17:59)
[2020-08-10] MEDS ORDERED: ONDANSETRON ODT 4 MG PO ONE (18:00)
--- NOTE | 2020-08-10 18:07 | NUR ---
PT MEDICATED PER EMAR. VSS. ISAACN.
[2020-08-10 18:20] LABS: BASOPHILS % (AUTO) 1 % (0-1); EOSINOPHILS % (AUTO) 2 % (1-7); LYMPHOCYTES % (AUTO) 30 % (22-44); MEAN CORPUSCULAR HEMOGLOBIN 26.2 pg (27.0-34.8); MEAN CORPUSCULAR HGB CONC 32.4 g/dL (32.4-35.8); MEAN PLATELET VOLUME 7.6 fL (7.4-10.4); MONOCYTES % (AUTO) 9 % (2-9); NEUTROPHILS % (AUTO) 59 % (42-75); PLATELET COUNT 294 x10^3/uL (130-400); RED BLOOD COUNT 4.03 x10^6/uL (3.82-5.3); RED CELL DISTRIBUTION WIDTH 17.5 % (9.6-15.2)
[2020-08-10 18:30] LABS: ALANINE AMINOTRANSFERASE 22 U/L (12-78); ALBUMIN 3.4 g/dL (3.4-5.0); ANION GAP 11 mmol/L (5-15); CALCIUM 9.8 mg/dL (8.5-10.1); CHLORIDE 98 mmol/L (98-107); CREATININE 8.51 mg/dL (0.55-1.02)
[2020-08-10 18:35] LABS: ALKALINE PHOSPHATASE 845 U/L (45-117); BILIRUBIN,TOTAL 0.4 mg/dL (0.2-1.0); TOTAL PROTEIN 8.5 g/dL (6.4-8.2); TROPONIN I < 0.015 ng/mL (0.000-0.045)
--- NOTE | 2020-08-10 18:53 | NUR ---
REPORT FROM EUNICE KATHLEEN
--- NOTE | 2020-08-10 18:55 | NUR ---
PT SITTING UPRIGHT ON ISRRAEL BURKS, VSS. PT DENIES ANY NEEDS AT THIS TIME. CALL LIGHT AND PERSONAL BELONGINGS WITHIN REACH.
[2020-08-10] MEDS ORDERED: KETOROLAC 60 MG/2 ML ONE (19:13)
[2020-08-10] MEDS ORDERED: ACETAMINOPHEN 325 MG TABLET ONE (19:24)
[2020-08-10 19:26] VITALS: BP 146/99
--- NOTE | 2020-08-10 19:29 | NUR ---
Patient given discharge instructions and they have confirmed that they understand the instructions. Patient ambulatory with steady gait. NAD, all questions answered appropriately, denies additional needs at this time. No personal belongings left in room after discharge.
[2020-08-10] MEDS ORDERED: ACETAMINOPHEN 325 MG TABLET PO ONE (19:30)
[2020-08-10] MEDS ORDERED: KETOROLAC 30 MG/1 ML IM ONE (19:30)
== END 2020-08-10 19:36 | disposition home or self-care (01) ==
LOC: ED 18:45
DX: A09 Infectious gastroenteritis and colitis, unspecified (principal); R11.2 Nausea with vomiting, unspecified; R94.31 Abnormal electrocardiogram [ECG] [EKG]; I10 Essential (primary) hypertension; Z99.2 Dependence on renal dialysis
CPT/HCPCS: 36415; 80053; 83690; 84484; 85025; 93005; 99284; Q0162

== ENCOUNTER 2020-11-05 08:33 | Emergency (ER) | payer MEDICARE, MEDICAID ==
[~2020-11-05] VITALS: Ht 162.6 cm; Wt 68.0 kg
[~2020-11-05 08:33] MED LIST changes: +OXYC1TAB12 PO; -OXYC1TAB14 PO
--- NOTE | 2020-11-05 08:40 | NUR ---
triage: patient dialysis patient m/w/f's, was dialized yesterday. She went to [facility] yesterday for same (headache) and was discharged according to her with amlodapine for BP issues. arrives today with headache and states having bp issues.
[2020-11-05] MEDS ORDERED: HYDROmorphone 2 MG/ML, 1ML ONE ×2 (09:22→14:07)
[2020-11-05] MEDS ORDERED: ONDANSETRON ODT 4 MG ONE (09:23)
--- NOTE | 2020-11-05 09:26 | NUR ---
c/o POSTERIOR CABRERA, STARTED YESTERDAY. TOOK TYLENOL YESTERDAY. NO PAIN MED TODAY. TOOK BP MED AT 0230 TODAY. +NAUSEA. VOMITED AT 0200. ORAL INTAKE: OATMEAL THIS MORNING. PT ACCOMPANIED BY HER DAD.
[2020-11-05] MEDS ORDERED: CALC0.5C9 PO (09:30)
[2020-11-05] MEDS ORDERED: CLON1PAT2 TP (09:30)
[2020-11-05] MEDS ORDERED: AMLO-211 PO (09:30)
[2020-11-05] MEDS ORDERED: ONDANSETRON ODT 4 MG PO ONE (09:30)
[2020-11-05] MEDS ORDERED: HYDROmorphone 2 MG/ML, 1ML IM ONE ×2 (09:30→14:00)
--- NOTE | 2020-11-05 09:35 | NUR ---
DILAUDID AND ZOFRAN GIVEN PER MAR. LAB AT BS
[2020-11-05 09:53] LABS: BASOPHILS % (AUTO) 1 % (0-1); EOSINOPHILS % (AUTO) 2 % (1-7); LYMPHOCYTES % (AUTO) 18 % (22-44); MEAN CORPUSCULAR HGB CONC 32.8 g/dL (32.4-35.8); MEAN PLATELET VOLUME 7.9 fL (7.4-10.4); MONOCYTES % (AUTO) 7 % (2-9); NEUTROPHILS % (AUTO) 72 % (42-75); PLATELET COUNT 246 x10^3/uL (130-400); RED BLOOD COUNT 4.88 x10^6/uL (3.82-5.3); RED CELL DISTRIBUTION WIDTH 17.6 % (9.6-15.2)
[2020-11-05 10:04] LABS: ALBUMIN 3.8 g/dL (3.4-5.0); ANION GAP 8 mmol/L (5-15); CHLORIDE 101 mmol/L (98-107); CREATININE 9.56 mg/dL (0.55-1.02)
[2020-11-05 10:12] LABS: CALCIUM 6.3 mg/dL (8.5-10.1)
--- NOTE | 2020-11-05 11:15 | NUR ---
RESTING QUIETLY ON GURNEY. REPORTS DECREASED CABRERA PAIN; SOME DIZZINESS. SIDE RAIL UP X1, CALL LIGHT W/IN REACH. PT'S DAD IN ROOM
--- NOTE | 2020-11-05 13:28 | NUR ---
PT REPORTS CABRERA RETURNING. 09/17. WILL NOTIFY ERP.
--- NOTE | 2020-11-05 13:35 | NUR ---
PT ENDORSED TO ARTEMIO GARCIA RN
--- NOTE | 2020-11-05 14:16 | NUR ---
PT REPORT FROM FRANNIE GARCIA. PT CARE RESUMED.
[2020-11-05 14:50] VITALS: BP 141/105
--- NOTE | 2020-11-05 15:01 | NUR ---
ERP NOTIFIED OF RECENT BP. WRITTEN DC INSTRUCTIONS DISCUSSED W/ PT; ENCOURAGED GOOD FLUID INTAKE, LIMITED BY HER HEALTH HX; UNDERSTANDING VERBALIZED.
== END 2020-11-05 15:04 | disposition home or self-care (01) ==
LOC: ED 08:36
DX: I12.9 Hypertensive chronic kidney disease with stage 1 through stage 4 chronic kidney disease, or unspecified chronic kidney disease (principal); N18.6 End stage renal disease; R51.9 Headache, unspecified
CPT/HCPCS: 36415; 80048; 82040; 85025; 96372; 99285; J1170; Q0162